=== PATIENT | female | born 1975 | race Two or more races ===

== ENCOUNTER 2021-05-13 15:37 | Emergency (ER) | payer MEDICAID, OTHER ==
[~2021-05-13] VITALS: Ht 154.9 cm; Wt 70.3 kg
[2021-05-13 17:28] VITALS: BP 127/79
[2021-05-13] MEDS ORDERED: IBUP600T27 PO (18:03)
== END 2021-05-13 18:30 | disposition home or self-care (01) ==
LOC: ER 15:41
DX: M77.32 Calcaneal spur, left foot (principal); M77.31 Calcaneal spur, right foot; M77.9 Enthesopathy, unspecified
CPT/HCPCS: 73610; 73630